=== PATIENT | female | born 1995 | race Caucasian/White ===

== ENCOUNTER → 2024-01-18 | Outpatient (REF) | payer BC | LOC: M SFHCDERM 14:33 | PROVIDERS: ATTEND Physician Assistant | DX: Z79.899 Other long term (current) drug therapy (principal) ==

== ENCOUNTER → 2024-03-22 | Outpatient (REF) | payer BC | LOC: M SFHCWAGY 18:00 | PROVIDERS: ATTEND Nurse Practitioner Family | DX: Z12.4 Encounter for screening for malignant neoplasm of cervix (principal) | CPT/HCPCS: 87624; G0123 ==